=== PATIENT | male | born 1950 | race Caucasian/White ===

== ENCOUNTER 2016-10-22 18:50 | Inpatient (IN) | payer BC ==
--- NOTE | ~2016-10-22 | CN ---
Consultation Report [facility] [address] [place]. [address] NAME: AKIRA RICHARD : 48 STATUS : ADM IN [facility]#: [id number] AGE: 66 ADM/REG DATE : 10/22/16 MR#: [id number] REPORT SERV DATE: 10/23/16 DICTATED BY: SREEKANTH DOUGLAS DATE: 10/23/16 REPORT STATUS : Draft TRANSCRIBED BY: RENATA DATE: 10/23/16 NEPHROLOGY CONSULTATION DATE OF CONSULTATION: 10/23/2016 INDICATION FOR CONSULTATION: Zfuys-fk-xihxjjz kidney disease. HISTORY OF PRESENT ILLNESS: Mr. Richard is a 66-year-old male, who is seen for acute-on- chronic kidney disease following admission with cardiogenic shock and ventricular tachycardia. He presented to the emergency room with systolic blood pressures in the 50s to 70s and required cardioversion. His initial EKG was consistent with ST elevation in inferior leads and ventricular tachycardia. His troponin has been rising. He currently is on vasopressin and Levophed for blood pressure support and will need cardiac cath today. Home medications included Lasix ,lisinopril, Aldactone. His history was significant for poor p.o. intake with nausea and vomiting prior to hospitalization. The patient's creatinine was 5.42 on admission, 10/22/2016 and is down to 4.64 on 10/23/2016. His baseline creatinine was 1.17 in 08/2012. PAST MEDICAL HISTORY: Ischemic cardiomyopathy ejection fraction of 30%, coronary artery disease, status post PCI, history of atrial fib, type 2 diabetes mellitus, hypertension, chronic kidney disease probable stage II, gout, prostate cancer, status post radiation therapy, hyperlipidemia, remote WA, probable COPD, AICD. SOCIAL HISTORY: Fifty plus pack year smoker, currently smokes, twelve to fourteen cigarettes per day. No alcohol or IV drug use. He is disabled. FAMILY HISTORY: Positive for suicide. No myocardial infarction. No end-stage renal disease. PAST SURGICAL HISTORY: Right rotator cuff surgery, AICD, PCI. ALLERGIES: NONE. HOME MEDICATIONS: Allopurinol, furosemide, gabapentin, amiodarone, Lipitor, lisinopril, Plavix, Lasix, sublingual nitroglycerin, 70/30 insulin, spironolactone. REVIEW OF SYSTEMS: HEENT: No change in visual acuity. No epistaxis. No pharyngitis. PULMONARY: Notes some shortness of breath. No hemoptysis. CARDIAC: Denied chest pain. No lower extremity edema. GI: Recent nausea, vomiting, decreased p.o. intake. : No gross hematuria, dysuria, pyuria. MUSCULOSKELETAL: Generalized weakness. Occasional back pain. DERMIS: No rash. No skin lesions. Consultation Report [place] [address] [place]. [address] NAME: AKIRA RICHARD : 48 STATUS : ADM IN [facility]#: [id number] AGE: 66 ADM/REG DATE : 10/22/16 MR#: [id number] REPORT SERV DATE: 10/23/16 DICTATED BY: SREEKANTH DOUGLAS DATE: 10/23/16 REPORT STATUS : Draft TRANSCRIBED BY: RENATA DATE: 10/23/16 NEUROLOGIC: No lateralizing weakness or seizure activity. Remainder of 12-point review of systems is negative. PHYSICAL EXAMINATION: GENERAL: Pleasant male, alert, responsive. VITAL SIGNS: Blood pressure 95/64, temperature 98.7, respiratory rate 22, pulse 61. HEENT: Eyes, no scleral icterus. Pupils equal, reactive to light. Extraocular movement intact. Nares patent. No discharge. Throat, no injection. Mucous membranes moist. NECK: No thyromegaly, masses, bruits. CHEST/LUNGS: Late crackles laterally, unable to appreciate wheezes. No dullness. CARDIAC: Regular rate and rhythm, 1/6 systolic ejection murmur. No gallop. No rub. ABDOMEN: Supple. Normoactive bowel sounds. No hepatosplenomegaly. No masses. : Rosas in place. RECTAL: Not evaluated. EXTREMITIES: No lower extremity edema. No calf tenderness. DERMIS: No skin rash. No skin lesions. NEUROLOGIC: Cranial nerves intact. No lateralizing weakness. MUSCULOSKELETAL: No deformity. No joint tenderness. IMPRESSION: 1. Acute kidney injury consistent with acute tubular necrosis from shock due to ischemia, possibly complicated by prerenal state, ALCON inhibitor effect, superimposed on chronic kidney disease too. 2. Ventricular tachycardia with cardiogenic shock. 3. Possible kns-HH-jrssrnaba myocardial infarction versus ST-elevation myocardial infarction. 4. AICD, status post reprogramming. 5. Possible urinary tract infection. 6. Ischemic cardiomyopathy, ejection fraction of 30%. 7. History of atrial fibrillation. 8. Type 2 diabetes mellitus. 9. History of hypertension. 10.Gout. 11.Prostate cancer, status post radiation therapy. 12.Hyperlipidemia. 13.Remote myocardial infarction. 14.Coronary artery disease, status post PCI. 15.Probable chronic obstructive pulmonary disease. PLAN: 1. Okay for catheterization. 2. 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 3. Labs. Consultation Report [address] [place]. [address] NAME: AKIRA RICHARD : 48 STATUS : ADM IN PAT#: [id number] AGE: 66 ADM/REG DATE : 10/22/16 MR#: [id number] REPORT SERV DATE: 10/23/16 DICTATED BY: SREEKANTH DOUGLAS DATE: 10/23/16 REPORT STATUS : Draft TRANSCRIBED BY: RENATA DATE: 10/23/16 JUNIOR/RENATA Sreekanth Douglas M.D. / [id number] CC: Leonides Noble M.D.
--- NOTE | ~2016-10-22 | CN ---
Consultation Report [facility] [address] [place]. [address] NAME: AKIRA RICHARD : 48 STATUS : ADM IN PAT#: [id number] AGE: 66 ADM/REG DATE : 10/22/16 MR#: [id number] REPORT SERV DATE: 10/23/16 DICTATED BY: CHAYO GRAY DATE: 10/23/16 REPORT STATUS : Draft TRANSCRIBED BY: MODL DATE: 10/23/16 EP CONSULTATION DATE OF CONSULTATION: INDICATION: Sustained ventricular tachycardia. HISTORY: The patient is a 66-year-old white male with underlying ischemic cardiomyopathy who had been feeling poorly for a number of days. He presented to the emergency room with a systolic pressure of 60 and a wide-complex tachycardia. He was cardioverted. He has a known ejection fraction of 30%. Previous anterior SD in 1996. He had a PCI to the LAD, 06/2015. He had a defibrillator also placed in 2015. He was started on amiodarone and has had no further arrhythmias. A central line is being placed as we speak. In the emergency room, his device was reprogrammed to a detection rate of 162. He also was found to have acute renal failure. CURRENT HOME MEDICATIONS: Allopurinol 100 per day, amiodarone 200 q.a.m., artificial tears q.a.m., aspirin 81 mg, atorvastatin 80 at bedtime, carvedilol 6.25 b.i.d., clopidogrel 75 a day, furosemide 40 a day, gabapentin 300 per day, insulin as directed, lisinopril 10 q.a.m., and Aldactone 25 q.a.m. ALLERGIES: INTOLERANCES, NONE KNOWN. SOCIAL HISTORY: Smoker, currently smokes half pack per day. and retired. FAMILY HISTORY: No history of sudden . PAST MEDICAL HISTORY/REVIEW OF SYSTEMS: Positive for hypertension, hyperlipidemia, underlying chronic kidney disease, remote history of prostate cancer, and previous myocardial infarctions with an ischemic cardiomyopathy. EF between 25% and 30%. PHYSICAL EXAMINATION: GENERAL: A 66-year-old, white male, appears chronically ill. VITAL SIGNS: Blood pressure 95/64, pulse 61. SKIN: No xanthelasmas. HEENT: He is normocephalic. There is no pallor. Sclerae white. JVD is not elevated. CHEST: No crackles. CARDIAC: S1 normal, S2 is singular. There is a soft S3. ABDOMEN: Without tenderness. EXTREMITIES: Without edema. Consultation Report [place] [address] [place]. [address] NAME: AKIRA RICHARD : 48 STATUS : ADM IN PAT#: [id number] AGE: 66 ADM/REG DATE : 10/22/16 MR#: [id number] REPORT SERV DATE: 10/23/16 DICTATED BY: CHAYO GRAY DATE: 10/23/16 REPORT STATUS : Draft TRANSCRIBED BY: RENATA DATE: 10/23/16 LABORATORY DATA: On 10/24/2015: BUN is 53, creatinine 4.64, potassium of 4.9, admitting potassium 5.1, magnesium 1.6. Troponin, initially 2.23. TSH 4.91. White count 12.8, hemoglobin 10.5. ECG shows a wide-complex rhythm on admission, which resolves to a paced atrial rhythm. Rate of 60 with no acute repolarization changes present. IMPRESSION: Ventricular tachycardia, which may have resulted in his current shock state. He is on appropriate therapy. We will continue to follow with him. I agree with the current therapy. Ultimately however, given the fact that he has been on amiodarone, he may require EP mapping and ablation for better control of his ventricular tachycardia. Further recommendations as his course evolves. NAGA/RENATA Chayo Gray M.D. / [id number] CC: Leonides Noble M.D. , [facility]
--- NOTE | ~2016-10-22 | CN ---
Consultation Report [facility] [address] [place]. [address] NAME: AKIRA RICHARD : 48 STATUS : ADM IN PAT#: [id number] AGE: 66 ADM/REG DATE : 10/22/16 MR#: [id number] REPORT SERV DATE: 10/24/16 DICTATED BY: SHAYNA PETERSON DATE: 10/24/16 REPORT STATUS : Draft TRANSCRIBED BY: MODFrancisco DATE: 10/24/16 INFECTIOUS DISEASE CONSULT DATE OF CONSULTATION: REASON FOR REFERRAL: Evaluation and treatment of gram-negative sergei sepsis. HISTORY OF PRESENT ILLNESS: The patient is a 66-year-old male. He has a history of coronary artery disease, ischemic cardiomyopathy. He has had ventricular tachycardia problems in the past and has an AICD. Also, he has hyperlipidemia, chronic renal insufficiency, prostate cancer, and tobacco dependency. He states he had felt unwell earlier in the week and then early in the morning of the , awoke with severe nausea and vomiting that continued through the day. He had fever-like sensation x1, but that was not a prominent symptom. He states he did not have any abdominal pain or cramping. He had no diarrhea and he had no dysuria. He says he has not had changes in his urine recently and appearance or smell and has not been treated in the past for urinary tract infection. He was found to have sustained ventricular tachycardia and an emergent cardioversion was done. He had persistent hypotension. So, Dr. Kearney of Critical Care Medicine ordered blood cultures on him. He was found yesterday to have a positive blood culture, one of two for gram-negative sergei. This was discussed with me last evening by phone. He had been started on Zosyn empirically, and I added a single dose of gentamicin to that. The patient's urine was abnormal showing large leukocyte esterase, large blood, positive nitrite at presentation, and 80 white blood cells. It is growing greater than 100,000 colonies of gram-negative sergei that does not look like an E coli yet that is still not definitively identified. He, this morning, was awake. He says he feels very weak, but somewhat better. His temperature has been normal since arrival. His white blood cell count was elevated at 11 and is higher today at 17. His creatinine is improving; it was 5.42 when he came in and it is down to 3.55 this morning. He did not eat any unusual foods that he thinks he may have gotten sick from and nobody around him has been ill. He did go fishing earlier in the week, but otherwise, no unusual environmental exposures. PAST MEDICAL HISTORY: Otherwise unremarkable. MEDICATIONS: As described above. ALLERGIES: HE HAS NO KNOWN ANTIMICROBIAL ALLERGIES. SOCIAL HISTORY: He is retired; ; disabled. Still smokes 12 to 14 cigarettes per day and has no history of alcohol or substance abuse. FAMILY HISTORY: Noncontributory. PHYSICAL EXAMINATION: GENERAL: A chronically ill-appearing, but nontoxic, elderly male, in no acute Consultation Report [place] [id number] [facility] [place]. [address] NAME: AKIRA RICHARD : 48 STATUS : ADM IN [facility]#: [id number] AGE: 66 ADM/REG DATE : 10/22/16 MR#: [id number] REPORT SERV DATE: 10/24/16 DICTATED BY: SHAYNA PETERSON DATE: 10/24/16 REPORT STATUS : Draft TRANSCRIBED BY: RENATA DATE: 10/24/16 distress. He is alert and oriented x3. VITAL SIGNS: Temperature as stated has remained normal, it is 98.4 at present with a pulse of 60, respirations 26, blood pressure 96/56. Weight is 85 kg. HEENT: Sclerae are clear. No oral lesions. NECK: Supple without lymphadenopathy. LUNGS: Crackles in the bases. Otherwise, clear. HEART: Regular rate and rhythm. ABDOMEN: Soft, tender in the groin areas. Venipunctures were done, but otherwise nontender. No masses palpated. No hepatosplenomegaly. EXTREMITIES: Without clubbing, cyanosis, or edema. No wounds, sores, or signs of cellulitis. LABORATORY DATA: White blood cell count is up to 17.1 today, but without a bandemia, hematocrit 27.6, and platelets 146. BUN and creatinine 59 and 3.55. His procalcitonin surprisingly was 0.15. IMPRESSION: Gram-negative sergei sepsis, probably genitourinary tract etiology. He does have signs of infection there and it is unclear whether it is right now the same organism that is in his blood. Gastrointestinal etiology is still a possibility with the nausea, vomiting, but without abdominal pain, cramping, or diarrhea, I think that is less likely. RECOMMENDATIONS: 1. We will continue Zosyn empirically pending identification of gram-negative sergei. 2. We will not give any more than a single dose of gentamicin I gave him last night with his chronic renal insufficiency. 3. Follow up the cultures tomorrow. Change antibiotics as indicated. Finally, I will follow the patient with you. I appreciate very much your consulting on this patient. MARTI/RENATA Shayna Peterson M.D. / [id number] CC: Leonides Noble M.D.
--- NOTE | ~2016-10-22 | HP ---
History And Physical [place] [id number] [facility] [place]. [address] NAME: AKIRA RICHARD : 48 STATUS : ADM IN PAT#: [id number] AGE: 66 ADM/REG DATE : 10/22/16 MR#: [id number] REPORT SERV DATE: 10/23/16 DICTATED BY: ANJALI BLUE DATE: 10/22/16 REPORT STATUS : Draft TRANSCRIBED BY: RENATA DATE: 10/22/16 DATE OF ADMISSION: 10/22/2016 REFERRING REASON: VT storm, cardiogenic shock, and acute renal failure. HISTORY OF PRESENT ILLNESS: This is a pleasant 66 years old white gentleman with complex past medical history, well known to Dr. Encarnacion, who was being brought by the ambulance for nausea, vomiting, general weakness, and tachycardia. He was found to be in wide-complex tachycardia up to 167 beats per minute on monitor. He was hypotensive with a systolic blood pressure 60 and required emergent cardioversion by Dr. Weiner in the emergency room. His initial electrocardiogram suggested some ST elevation in the inferior leads, and Dr. Aden, interventionalist on-call, was apparently called and reviewed the electrocardiogram. The patient was found to be hypotensive, but is feeling better after he underwent emergent cardioversion. The patient has known ischemic cardiomyopathy with EF 30% with several myocardial infarctions, one anterior in 1996 and then the pyb-JG-nbxxilrix PA treated with PCI to LAD by Dr. Kaiser Osullivan in 06/2015. He is status post AICD Medtronic device placement in 2016. He is a smoker with hypertension, hyperlipidemia, and chronic kidney disease. He has been in his usual state of health until four days ago when he started with some nausea and vomiting, poor p.o. intake. He was fishing over the last couple of days. He developed poorly defined episodes of substernal chest pressure on and off. He has also one day of fevers, but developed nausea and vomiting. He was unable to keep anything down. As of yesterday, he was feeling weak and developed some palpitations. He was found to be in wide- complex tachycardia. He denies any lower extremity edema, syncope. Based on the Medtronic device interrogation, he got four episodes of ventricular tachycardia yesterday, which was treated with antitachycardia pacing and his detection has been decreased in the emergency room today from 185 to 162. He is comfortably resting now, oriented x3. He was found to be in acute on chronic renal failure with a creatinine of 5.4 and BUN 51. His initial troponin is 2.2. REVIEW OF SYSTEMS: The rest of review of system is negative. PAST MEDICAL HISTORY: 1. Ischemic cardiomyopathy with EF 25%. 2. Coronary artery disease, status post anterior myocardial infarction in 1996 with non- STEMI in 2016. 3. Status post PCI to LAD by Dr. Osullivan in 2016. 4. Hypertension, hyperlipidemia, smoking dependency, and he has chronic kidney disease. 5. Remote history of prostate cancer. 6. AICD in place. 7. History of a ventricular tachycardia in the past. ALLERGIES: NO KNOWN DRUG ALLERGIES. History And Physical [address] [address] NAME: AKIRA RICHARD : 48 STATUS : ADM IN [facility]#: [id number] AGE: 66 ADM/REG DATE : 10/22/16 MR#: [id number] REPORT SERV DATE: 10/23/16 DICTATED BY: ANJALI BLUE DATE: 10/22/16 REPORT STATUS : Draft TRANSCRIBED BY: RENATA DATE: 10/22/16 SOCIAL HISTORY: The patient has been smoking entire life, currently half a pack a day. He walks without any support. He is . He is retired. FAMILY HISTORY: Negative for sudden cardiac or premature coronary artery disease in the family. HOME MEDICATIONS: Amiodarone 200 mg twice a day, atorvastatin 80 mg once a day, Coreg 6.25 mg twice a day, Plavix 75 mg once a day, Lasix 40 mg once a day, lisinopril 10 mg once a day, aspirin, and spironolactone 12.5 mg once a day. He has not been taking any of these medication over the last day or so while he has nausea and vomiting. PHYSICAL EXAMINATION: GENERAL: Chronic ill-looking gentleman. VITAL SIGNS: Blood pressure 160/40 and heart rate 110, regular. HEENT - Pupils reactive to light and accommodation. Moist mucosa membrane. NECK: No JVD. Normal carotid upstroke. No carotid bruits. LUNGS: Decreased breath sounds observed, but no crackles. COR: Normal S1, S2. No S3 or S4. No significant rub or murmurs. There is AICD in place in the left prepectoral muscle area. ABDOMEN: Distended and nontender. EXTREMITIES: Lower extremities, decreased pedal pulses bilaterally, but no edema. SKIN: Warm with normal turgor. MS - No kyphosis. NEURO/PSY - Alert and oriented x3. Nonfocal. LABORATORY DATA: Hemoglobin 10.3, leukocytosis 11,000 with left shift. INR 1.3. Sodium 138, potassium 5.1, creatinine 5.4, BUN 51, troponin 2.2, magnesium 1.5. Initial electrocardiogram revealed wide-complex tachycardia, 160 beats per minute, consistent with ventricular tachycardia. After the cardioversion, he has atrial-paced rhythm 61 beats per minute with old anteroseptal PA when compared to previous electrocardiogram. ASSESSMENT AND PLAN: 1. Ventricular tachycardia with evidence of ventricular tachycardia storm. 2. Hypotension, likely cardiogenic shock. 3. Elevated troponin, possible acute coronary syndrome. 4. Acute renal failure in the setting of chronic renal insufficiency. The patient will be admitted to ICU and close monitoring. He received a central line in the emergency room. He will require pressors, which will be difficult in the setting of his ventricular tachycardia. We will ask lei seller to help us to manage this critically ill gentleman. We will start him on Manuelito-Synephrine initially in the attempt to avoid more ventricular tachycardia. He will be on intravenous amiodarone and intravenous heparin, and receive aspirin. We will hold all the other medications. Likely, he will need to proceed with coronary arteriogram in the near future. We will also ask farm equipment mechanic to see him tonight for his renal failure. Code status has been discussed with the patient and his family members. He is full code. History And Physical [address] [address] NAME: AKIRA RICHARD : 48 STATUS : ADM IN [facility]#: [id number] AGE: 66 ADM/REG DATE : 10/22/16 MR#: [id number] REPORT SERV DATE: 10/23/16 DICTATED BY: ANJALI BLUE DATE: 10/22/16 REPORT STATUS : Draft TRANSCRIBED BY: RENATA DATE: 10/22/16 DG/RENATA Anjali Blue M.D. / [id number] CC: Anjali Blue M.D.
--- NOTE | ~2016-10-22 | EHP ---
ER History and Physical [address] [address] NAME: AKIRA RICHARD : 48 STATUS : ADM IN PAT#: [id number] AGE: 66 ADM/REG DATE : 10/22/16 MR#: [id number] REPORT SERV DATE: 10/23/16 DICTATED BY: HAIR CROSS DATE: 10/22/16 REPORT STATUS : Draft TRANSCRIBED BY: MODFrancisco DATE: 10/22/16 CHIEF COMPLAINT: Weakness, nausea, and chest pain. HISTORY OF PRESENT ILLNESS: A 66-year-old white male who for three days now since Friday has been having intermittent nausea, intermittent chest pain as well as profound weakness to the point where he has been unable to stand, get up and get around. He has had no p.o. intake per him since Friday when the symptoms started. EMS was summoned by the patient because of this, who responded to find the patient at what appeared to be a wide-complex tachycardia, was lethargic, en route was given 150 mg of Cordarone with a change in his heart rate down to about 160 that remained wide-complex. Upon arrival here, patient was lethargic and nearly obtunded. Initial blood pressure was in the 50s. IV fluids were started immediately. His initial EKG here showed some ST elevation in his inferior leads as well as what appeared to be ventricular tachycardia in his lateral leads. Due to the ST elevation and the significant EKG abnormalities, a STEMI was called. The on- call STEMI doctor was Dr. Aden. I and him discussed the case on the presentation. Here, the patient is hypotensive, tachycardic, and was extremely pale looking and he was denying chest pain on arrival here. We held off on rushing the patient to the lab[facility] until we could better evaluate the patient's situation and get a better bearing on what the patient's clinical situation is. After I discussed this case with Dr. Aden, the patient's blood pressure ysabel to the 70s, however, precipitously change down into the 50s. Again, the patient became obtunded again and was barely arousable so using 200 joules of biphasic defibrillator, the patient was synchronized cardioverted into normal sinus rhythm. Repeat EKG post cardioversion showed normal sinus rhythm with a rate about 60. The patient improved dramatically. Mental status improved. The patient stated that he felt better than he had in the last several days. His blood pressures, however, continued to be a problem. The patient's blood pressure after synchronized cardioversion back in normal sinus rhythm ysabel to the 70s, however, despite fluid boluses, this did not improve. My suspicion is that the patient has a component of cardiogenic shock secondary to his ventricular tachycardia although severe volume depletion is a possibility given the fact that he has been lethargic and no p.o. intake for several days. Dr. Aden actually came to see the patient just after his cardioversion and reviewed the EKGs. The post-cardioversion EKG did not indicate an ST elevation NV. The patient is absent of chest pain here so STEMI protocol was abandoned. After the patient's stabilization, blood work was drawn. Labs revealed the patient is in acute renal failure as well as has a moderately elevated troponin of 2.2. The patient remained stable here, normal sinus rhythm. Multiple IV fluid boluses were given. However, the patient's blood pressure did not respond. He does have an EF of 25% so Manuelito-Synephrine was started, this was a choice made by Cardiology for pressor therapy. A right central line was placed by myself and the chest x-ray reveals tips in the SVC with no pneumothorax. See the paper chart for details of this procedure. Overall the patient's clinical situation stabilized after pressor therapy as well as DC cardioversion. He was placed on amiodarone drip directly post cardioversion as well. He is on amiodarone, and of note, he recently had reduction in his amiodarone dose from 200 b.i.d. to 200 daily. The [employer] packaging sales representative came to interrogate the patient's pacemaker and AICD. The patient's previous setting was a ventricular rate of 182 to initiate defibrillation. This was lowered to 162 by Cardiology. Please document greater than 75 minutes critical care time went in direct stabilization of the patient as well as discussing the patient's situation with the consultants and admitting ER History and Physical [address] [place]. [address] NAME: AKIRA RICHARD : 48 STATUS : ADM IN [facility]#: [id number] AGE: 66 ADM/REG DATE : 10/22/16 MR#: [id number] REPORT SERV DATE: 10/23/16 DICTATED BY: HAIR CROSS DATE: 10/22/16 REPORT STATUS : Draft TRANSCRIBED BY: MODL DATE: 10/22/16 physician. The patient will be placed in the ICU. This critical care time is outside of any billable procedures done. LEONORA/RENATA Hair Cross DO / [id number] CC: Leonides Noble M.D.
--- NOTE | ~2016-10-22 | CN ---
Consultation Report [facility] [address] [place]. [address] NAME: AKIRA RICHARD : 48 STATUS : ADM IN PAT#: [id number] AGE: 66 ADM/REG DATE : 10/22/16 MR#: [id number] REPORT SERV DATE: 10/22/16 DICTATED BY: CHAYO KEARNEY DATE: 10/22/16 REPORT STATUS : Draft TRANSCRIBED BY: MODL DATE: 10/22/16 CONSULTATION REPORT DATE OF CONSULTATION: 10/22/2016 REASON FOR CONSULTATION: Shock. HISTORY OF PRESENT ILLNESS: The patient is a 66-year-old gentleman with a past medical history of: 1. Insulin-dependent diabetes. 2. Coronary disease, status post multiple PCI by Dr. Osullivan. 3. Obesity. 4. Hyperlipidemia. 5. Hypertension. 6. Tobacco abuse. 7. Chronic kidney disease. 8. History of prostate cancer, status post radiation therapy. 9. Gout. 10.History of sustained ventricular tachycardia, status post AICD placement. 11.History of rotator cuff repair. The patient is a 66-year-old gentleman with a past medical history of insulin-dependent diabetes; coronary artery disease; and sustained ventricular tachycardia, status post AICD placement who presents with nausea, vomiting, and weakness. The patient says that he was in his usual state of health until the night before admission to the hospital. He had been fishing the last several days and had been feeling well. Then, on the night before admission, he began having some nausea, vomiting, and was unable to keep anything down. He states that he has been having weakness since the onset of the nausea and vomiting as well. All of this worsened today and this prompted him to come to the emergency room. He denies any fevers, but does note that he has been having some diaphoresis over the same time. He denies any abdominal pain, any dysuria, or any diarrhea. He denies any sick contacts, recent travel. He does endorse a cough over the last few days, but that has been nonproductive. He denies any fevers. He does endorse some right shoulder pain, that this has been stabbing in quality and radiating to his back. He denies any shortness of breath. On arrival here to the emergency room, he was found to be in sustained ventricular tachycardia with a systolic blood pressure in the 50s. He underwent defibrillation in the emergency room with improvement in his blood pressure somewhat when he is back in sinus rhythm, but still currently requiring both vasopressin as well as Manuelito-Synephrine drip to maintain a normal blood pressure. Per Cardiology interrogation of his pacer, it shows that he has been in and out sustained ventricular tachycardia for the past three days, but the ventricular rate has been below his threshold, so the AICD has not defibrillated him. We are consulted to assist in management of his shock. ALLERGIES: NO KNOWN DRUG ALLERGIES. Consultation Report [facility] [address] [place]. [address] NAME: AKIRA RICHARD : 48 STATUS : ADM IN PAT#: [id number] AGE: 66 ADM/REG DATE : 10/22/16 MR#: [id number] REPORT SERV DATE: 10/22/16 DICTATED BY: CHAYO KEARNEY DATE: 10/22/16 REPORT STATUS : Draft TRANSCRIBED BY: RENATA DATE: 10/22/16 HOME MEDICATIONS: Include: 1. Insulin 70/30, 18 units subcutaneously every morning and 12 units subcutaneously at night. 2. Sublingual nitroglycerin as needed. 3. Neurontin 300 mg p.o. three times daily. 4. Aspirin 81 mg p.o. daily. 5. Coreg 6.25 mg p.o. twice daily. 6. Amiodarone 200 mg daily. 7. Allopurinol 100 mg p.o. daily. 8. Lipitor 80 mg p.o. at bedtime. 9. Lisinopril 10 mg p.o. daily. 10.Plavix 75 mg p.o. daily. 11.Lasix 40 mg p.o. daily. 12.Spironolactone 12.5 mg p.o. daily. SOCIAL HISTORY: A 50+ pack-year history of smoking, currently smokes around 12 to 14 cigarettes a day. No alcohol or IV drug abuse. FAMILY HISTORY: No significant family history of coronary artery disease. REVIEW OF SYSTEMS: A 10-point review of systems is negative except as mentioned in the HPI. PHYSICAL EXAMINATION: VITAL SIGNS: Temperature 97.8, heart rate 60, respiratory rate 23, and blood pressure 95/60. GENERAL: In no acute distress. HEENT: Pupils are equal, round, and reactive to light. Extraocular movements are intact. Oropharynx is clear. Moist mucous membranes. NECK: Supple and nontender. No lymphadenopathy. No thyromegaly. No jugular venous distention. LUNGS: Decreased breath sounds bilaterally with some mild end-expiratory wheezes. CARDIOVASCULAR: Regular rate and rhythm. No murmurs, rubs, or gallops. ABDOMEN: Soft, nontender, and nondistended. Positive bowel sounds. No hepatosplenomegaly. EXTREMITIES: No cyanosis, clubbing, or edema. NEURO: Alert and oriented x3. Cranial nerves intact. PSYCH: Mood appropriate. LABS AND IMAGING: Lactic acid 3.9. Metabolic profile remarkable for BUN of 51 and creatinine of 5.4. Troponin 2.2. TSH 4.9. CBC remarkable for white count of 11 with 73% neutrophils. ABG with a pH of 7.36, pCO2 of 28, and PO2 of 102. ASSESSMENT AND PLAN: The patient is a 66-year-old gentleman with a past medical history of insulin-dependent diabetes; coronary artery disease; and sustained ventricular tachycardia, Consultation Report [address] [place]. [address] NAME: AKIRA RICHARD : 48 STATUS : ADM IN [facility]#: [id number] AGE: 66 ADM/REG DATE : 10/22/16 MR#: [id number] REPORT SERV DATE: 10/22/16 DICTATED BY: CHAYO KEARNEY DATE: 10/22/16 REPORT STATUS : Draft TRANSCRIBED BY: RENATA DATE: 10/22/16 status post automatic implantable cardioverter defibrillator placement who now presents again with the same ventricular tachycardia and shock, status post defibrillation in the emergency room with return to normal sinus rhythm, but now with persistent shock for which we are consulted. I suspect most likely his etiology of his shock is cardiac in origin with no contribution from sepsis. He denies really any infectious complaints. I do not see any evidence of infection on his lab data. I am going to check some cultures as well as a procalcitonin, but going to hold off on starting any empiric antibiotics for now. I did a bedside lung and cardiac ultrasound, which shows bilateral B lines with no evidence of consolidation. No pleural effusions. His IVC is 1.7 cm with minimal variation using mitral valve excursion. His ejection fraction appears to be less than 40%. These findings support cardiogenic shock rather than septic shock and no evidence of volume depletion. His lung ultrasound also suggests that he is developing a component of pulmonary edema, but his oxygenation is currently adequate, so would not favor attempting diuresis at this time especially given his shock. Currently, he is on Manuelito-Synephrine and vasopressin. We will attempt to start a Levophed drip to maintain a MAP greater than 65, but we will watch his heart rate and rhythm closely. Once he is on Levophed, we will attempt to wean off his Manuelito- Synephrine as tolerated. The rest of his care will be per the primary cardiac team. We appreciate the consult. We will continue follow along the patient with you. Please call if you have any questions. The patient has a high probability of sudden clinically significant or life-threatening deterioration in his condition. Total critical care time spent on this patient including time at the bedside and reviewing the chart as well as discussion with Dr. Noble was 40 minutes. ANNIE/RENATA Chayo Kearney MD / [id number] CC: Leonides Noble M.D.
--- NOTE | ~2016-10-22 | DS ---
Discharge Summary [facility] [address] [place]. [address] NAME: AKIRA RICHARD : 48 STATUS : DIS IN PAT#: [id number] AGE: 66 ADM/REG DATE : 10/22/16 MR#: [id number] REPORT SERV DATE: 11/16/16 DICTATED BY: LEONIDES BLUE DATE: 11/15/16 REPORT STATUS : Draft TRANSCRIBED BY: RENATA DATE: 11/15/16 Data Collection from hospitalization DISCHARGE DIAGNOSES: 1. Escherichia coli sepsis. 2. Ventricular tachycardia storm. 3. Acute kidney injury on chronic kidney disease. 4. Ischemic cardiomyopathy. 5. Hypertension. 6. Non-ST elevation myocardial infarction. 7. Remote history of prostate cancer. 8. History of automatic implantable cardioverter defibrillator placement. 9. Hyperlipidemia. 10.Tobacco use. 11.Chronic kidney disease. CONSULTATIONS: 1. Diaz Kearney MD. 2. Marcell Rendon M.D. 3. Diaz Gray M.D. 4. Devon Anthony M.D. PROCEDURES PERFORMED: Cardiac catheterization on 10/23/2016. MEDICATIONS: Zyloprim 100 mg every morning, Pacerone as instructed, Refresh solution one drop every morning, aspirin 81 mg every morning, Lipitor 80 mg at bedtime, Plavix 75 mg every morning, Neurontin 300 mg three times a day, NovoLog 18 units subcutaneously every morning, NovoLog 12 units subcutaneously at bedtime, ProAmatine 5 mg twice a day, and Nitrostat 0.4 mg sublingually as needed. CONDITION AT DISCHARGE: Stable. DISPOSITION: The patient was discharged home on an 1800-calorie diabetic diet with activities as instructed. He would follow up with Dr. Christoph Urena on 11/12/[address] Hoang three to four weeks following discharge. He would follow up with his primary care provider one to two weeks following discharge. He would follow up at cardiac rehab on 11/27/2016. HOSPITAL COURSE: This is a 66-year-old man who has a complex past medical history. The patient was brought in by ambulance with nausea, vomiting, general weakness, and tachycardia. He was found to be in wide-complex tachycardia up to 167 beats per minute. He was hypotensive with systolic blood pressure of 60 and required emergent cardioversion by Dr. Weiner in the emergency room. His initial electrocardiogram suggested some ST elevation in the inferior leads. Dr. Cristiano Aden was apparently called and reviewed the electrocardiogram. The patient was found to be hypotensive, but was feeling better after he underwent emergent cardioversion. The patient has known ischemic cardiomyopathy with ejection fraction 30% with several myocardial infarctions. He is status post percutaneous coronary intervention in 2016 and AICD placement in 2016. He is a smoker with hypertension, Discharge Summary [address] [address] NAME: AKIRA RICHARD : 48 STATUS : DIS IN PAT#: [id number] AGE: 66 ADM/REG DATE : 10/22/16 MR#: [id number] REPORT SERV DATE: 11/16/16 DICTATED BY: LEONIDES BLUE DATE: 11/15/16 REPORT STATUS : Draft TRANSCRIBED BY: RENATA DATE: 11/15/16 hyperlipidemia, and chronic kidney disease. He had been in his usual state of health until about four days prior to this admission when he began to develop some nausea and vomiting. He had poor oral intake. He was fishing over the past couple of days. He developed poorly defined episodes of substernal chest pressure on and off. He also had one day of fever, but then developed nausea and vomiting. He was unable to keep anything down. On the day prior to this admission, he felt weak and developed some palpitation. He was found to be in wide- complex tachycardia. Based on the [employer] device interrogation, he had four episodes of ventricular tachycardia, which had been treated with antitachycardia pacing and his detection had been decreased in the emergency room from 185 to 162. He was found to be in acute on chronic renal failure with creatinine of 5.4. His initial troponin was 2.2. l intervention. He was admitted to the hospital at this time for further evaluation and treatment. Upon admission, the patient was placed in the ICU. Creatinine level was 5.4. A central line was placed in the emergency room. It was felt that he would require pressors. He was started on Manuelito-Synephrine initially in the attempt to avoid marked ventricular tachycardia. He was going to receive intravenous amiodarone and intravenous heparin and received some aspirin. We would hold all of his other medications. It was felt that he would likely need to proceed with coronary arteriogram in the near future. He was seen in consultation by Dr. Diaz Kearney regarding shock. He has had a cough for a few days, which was nonproductive. He said he had some right shoulder pain that was stabbing in quality and radiated to his back. White blood cell count was 11. It was suspected that the most likely etiology of his shock was cardiac in origin with no contribution from sepsis. He really denied any infectious complaints. He did not see any evidence of infection on the patient's lab data. Some cultures were going to be checked as well as procalcitonin, but we would hold off on starting empiric antibiotics for now. A bedside lung and cardiac ultrasound was performed, which showed bilateral B lines with no evidence of consolidation and no pleural effusion. IVC was 1.7 cm with minimal variation. His ejection fraction appeared to be less than 40%. These findings support cardiogenic shock rather than septic shock, and there was no evidence of volume depletion. His lung ultrasound also suggested that he was developing a component of pulmonary edema, but his oxygenation was adequate currently. We did not favor attempting diuresis at this time, especially given his shock. We would attempt to start a Levophed drip to maintain MAP greater than 65, but we would watch his heart rate and rhythm closely. Once he was on Levophed, we would attempt to wean off the Manuelito-Synephrine as tolerated. The patient has a high probability of sudden clinically significant or life-threatening deterioration in his condition. The following day, he was seen by Dr. Marcell Rendon regarding acute on chronic kidney disease. On admission, the patient's creatinine was 5.42. It had decreased now to 4.6. Baseline creatinine was 1.17 in 2012. He was felt to have acute kidney injury consistent with acute tubular necrosis from shock due to ischemia, possibly complicated by prerenal state, ALCON inhibitor effect, superimposed on chronic kidney disease. It was felt that the patient could undergo cardiac catheterization. Arrangements would be made for Vas-Cath for possible need of dialysis/[facility]. The patient was taken to the cardiac laborer syrup machine where he underwent the above-mentioned procedure by Dr. Christoph Mosquera. He tolerated this well, and there were no complications. The patient was seen by Dr. Diaz Gray regarding sustained ventricular tachycardia. He has been started on amiodarone and had no further arrhythmia. A central line was in place. He was on appropriate therapy and he agreed with the current therapy. Ultimately, given the fact that he had been on Discharge Summary [facility] [id number] [place]. [address] NAME: AKIRA RICHARD : 48 STATUS : DIS IN PAT#: [id number] AGE: 66 ADM/REG DATE : 10/22/16 MR#: [id number] REPORT SERV DATE: 11/16/16 DICTATED BY: LEONIDES BLUE DATE: 11/15/16 REPORT STATUS : Draft TRANSCRIBED BY: RENATA DATE: 11/15/16 amiodarone, it was felt that he may require electrophysiology mapping and ablation for better control of his ventricular tachycardia. A Vas-Cath was placed. He was seen in consultation the following day by Dr. Devon Anthony for evaluation and treatment of gram- negative sergei sepsis. He was found to have a positive blood culture 1 of 2 for gram-negative rods. He has been started on empiric Zosyn. A single dose of gentamicin had being given. His urine was abnormal showing large leukocyte esterase, large blood, positive nitrites, on presentation and 80 white blood cells. It was growing greater than 100,000 colonies of gram negative rods that did not look like E. coli yet and was still not definitively identified. He said he felt very weak, but somewhat better. His temperature had been normal since arrival. His white blood cell count had increased to 17. Creatinine had improved to 3.55. His impression included gram-negative sergei sepsis, probably genitourinary tract etiology. He does have signs of infection and it was unclear whether it was right now the same organism that was in his blood. Gastrointestinal etiology was still a possibility with nausea and vomiting, but without abdominal pain, cramping, or diarrhea, it was felt that this was less likely. Empiric Zosyn was going to be continued, pending identification of gram-negative rods. We would not give any more than a single dose of gentamicin with his chronic renal insufficiency. He did have runs of ventricular tachycardia. He had no chest pain or palpitations. We were going to continue IV - oral amiodarone. ICD rates were adjusted. On 10/25/2016, he was being weaned off Levophed. He had been changed to oral amiodarone. He still had an intermittent cough. Creatinine continued to decrease and was now 2.79. Bumex was decreased. Bumex was continued. He was changed to Ancef. The following day, ALCON inhibitor was on hold. Renal function was improving. Supportive care continued. Magnesium and potassium supplementation were given. White blood cell count had decreased. On 10/27/2016, he said he felt better. He was a little stronger. He was afebrile. Ancef was continued. Renal function was stable. He was changed to oral diuresis. ALCON inhibitor remained on hold. He was up sitting in a chair. On 10/28/2016, he was being reloaded with oral amiodarone. He had no further ventricular tachycardia. We would decrease the amiodarone towards the end of the week. He had no nausea or vomiting. The Rosas catheter was removed. He was going to be transferred to the floor. The Vas-Cath was going to remain in place a little longer. On 10/29/2016, he had been taken off Levophed. He had good urine output. He had no shortness of breath. He said that he was feeling well and had no chest pain. The Vas-Cath was removed. The next day, he was feeling stronger. He was wanting to go home. He had no edema. Cardiovascular status was stable. On 10/31/2016, he was still weak. He had been evaluated by Physical Therapy. The patient had wide-complex tachycardia. The morphology was different than on admission. The rate was also different. It was felt that he may have underlying atrial flutter and left bundle-branch block. [employer] was asked to check the ICD. Amiodarone was continued. It was felt that he may need to undergo cardioversion. If findings were consistent with atrial flutter, we would start anticoagulant and plan for either ablation or cardioversion. ICD check was performed. Amiodarone was continued. The ICD check was consistent with ventricular tachycardia. This was self-terminated and he was now in a sinus rhythm. Blood pressure was low. Amiodarone was continued. Discharge planning was performed. Furosemide was stopped. IV normal saline was given. Left ventricular ejection fraction is 20%-25%. He still felt weak. All antihypertensives and diuretics were held. He did have some hypotension. Echocardiogram was performed. He had a Discharge Summary [facility] [address] [place]. [address] NAME: AKIRA RICHARD : 48 STATUS : DIS IN PAT#: [id number] AGE: 66 ADM/REG DATE : 10/22/16 MR#: [id number] REPORT SERV DATE: 11/16/16 DICTATED BY: LEONIDES BLUE DATE: 11/15/16 REPORT STATUS : Draft TRANSCRIBED BY: MODL DATE: 11/15/16 4-minute run of ventricular tachycardia. The patient tolerated this okay. Amiodarone was going to be continued. Blood pressure was too low to add beta-nina. On 11/02/2016, he had no complaints of chest pain. Discharge instructions were given. Due to his improved and stable condition, he was discharged home with the above-stated instructions. Information collected by: Danika Poole I submit the above information as my discharge summary. TASH/RENATA Leonides Blue M.D. / [id number] CC: Fabián Caballero M.D. David Wendt, M.D. Mark Anderson, M.D. Claude Galphin, M.D.
[~2016-10-22 18:50] MED LIST: ASAB PO; COREG6 PO; HUMALOGMIX SC; HUMAMIXPEN SC; L40 PO; LIPITOR80 MG PO; NEUR300 PO; NITROSTAT0.4 MG SL; NOVOPENMIX SC; P20 PO; PLAVIX PO; PRIN10 PO; SPIRO25 PO; VASOTEC2 PO; Z100 PO
[2016-10-22] MEDS ORDERED: NEUR300 PO (18:51)
[2016-10-22] MEDS ORDERED: NITROSTAT0.4 MG SL (18:51)
[2016-10-22] MEDS ORDERED: COREG6 PO (18:53)
[2016-10-22] MEDS ORDERED: ASAB PO (18:53)
[2016-10-22] MEDS ORDERED: CORDARONE PO (18:54)
[2016-10-22] MEDS ORDERED: Z100 PO (18:54)
[2016-10-22] MEDS ORDERED: PRIN10 PO (18:55)
[2016-10-22] MEDS ORDERED: LIPITOR80 MG PO (18:55)
[2016-10-22] MEDS ORDERED: PLAVIX PO (18:55)
[2016-10-22] MEDS ORDERED: SPIRO25 PO (18:56)
[2016-10-22] MEDS ORDERED: L40 PO (18:56)
[2016-10-22] MEDS ORDERED: REFRESH OPH (18:57)
[2016-10-22 18:58] LABS: BASOPHILS 0.1 %; BASOPHILS ABSOLUTE 0.01 10/3/uL (0.0-0.16); EOSINOPHILS 0.2 %; EOSINOPHILS ABSOLUTE 0.02 10/3/uL (0.0-0.53); IMMATURE GRANULOCYTES 0.4 %; IMMATURE GRANULOCYTES ABSOLUTE 0.05 10/3/uL (0.0-0.11); LYMPHOCYTES 20.4 %; LYMPHOCYTES ABSOLUTE 2.28 10/3/uL (0.67-4.30); MEAN CORPUS HGB CONC 33.8 g/dL (32.0-36.0); MEAN CORPUSCULAR HEMOGLOB 32.4 pg (26.0-34.0); MEAN PLATELET VOLUME 9.7 fL (9.2-13.0); MONOCYTES 5.6 %; MONOCYTES ABSOLUTE 0.63 10/3/uL (0.21-1.20); NEUTROPHILS 73.3 %; NEUTROPHILS ABSOLUTE 8.17 10/3/uL (2.02-8.40); PLATELET COUNT 200 10/3/uL (150-400)
[2016-10-22 18:59] LABS: HEMATOCRIT 30.5 % (40.0-51.0); HEMOGLOBIN 10.3 g/dL (13.6-17.8); MANUAL DIFF NO %; MEAN CORPUSCULAR VOLUME 95.9 fL (80-100); RED CELL COUNT 3.18 10/6/uL (4.7-6.1); WHITE BLOOD CELLS 11.2 10/3/uL (4.5-10.5)
[2016-10-22 19:07] LABS: INTERNATIONAL NORMAL RATI 1.3 UNITS (-); PARTIAL THROMBO TIME 34.3 SEC (22.5-37.2); PROTIME (NOT ORD) 15.9 SEC (12.0-14.5)
[2016-10-22 19:20] LABS: CALCIUM, SERUM 8.5 MG/DL (8.5-10.4); CHLORIDE, SERUM 107 MMOL/L (96-112); POTASSIUM, SERUM 5.1 MMOL/L (3.5-5.3); SODIUM, SERUM 137 MMOL/L (135-148)
[2016-10-22 19:23] LABS: BUN (BLOOD UREA NITROGEN) 51 MG/DL (6-23); CHEST PAIN PROFILE TAT 0 Hrs 30 Mins; CO2 (CARBON DIOXIDE) 18 MMOL/L (24-34); CREATININE 5.42 MG/DL (0.70-1.30); GFR AFRICAN AMERICAN 12 ML/MIN (>=60); GFR NON AFRICAN AMERICAN 10 ML/MIN (>=60); GLUCOSE, SERUM 153 MG/DL (60-99); TROPONIN I 2.23 NG/ML (<0.05)
[2016-10-22 20:24] LABS: LACTATE 3.9 MMOL/L (0.3-2.4)
[2016-10-22 23:56] LABS: BASOPHILS 0.1 %; BASOPHILS ABSOLUTE 0.01 10/3/uL (0.0-0.16); EOSINOPHILS 0 %; HEMATOCRIT 30.3 % (40.0-51.0); HEMOGLOBIN 10.1 g/dL (13.6-17.8); IMMATURE GRANULOCYTES 0.4 %; IMMATURE GRANULOCYTES ABSOLUTE 0.05 10/3/uL (0.0-0.11); LYMPHOCYTES 12.2 %; LYMPHOCYTES ABSOLUTE 1.38 10/3/uL (0.67-4.30); MEAN CORPUS HGB CONC 33.3 g/dL (32.0-36.0); MEAN CORPUSCULAR HEMOGLOB 32.7 pg (26.0-34.0); MEAN CORPUSCULAR VOLUME 98.1 fL (80-100); MONOCYTES 6.7 %; MONOCYTES ABSOLUTE 0.76 10/3/uL (0.21-1.20); NEUTROPHILS 80.6 %; NEUTROPHILS ABSOLUTE 9.15 10/3/uL (2.02-8.40); PLATELET COUNT 189 10/3/uL (150-400); RED CELL COUNT 3.09 10/6/uL (4.7-6.1); WHITE BLOOD CELLS 11.4 10/3/uL (4.5-10.5)
[2016-10-22 23:58] LABS: MANUAL DIFF NO %
[2016-10-23 00:14] LABS: INTERNATIONAL NORMAL RATI 1.5 UNITS (-); PROTIME (NOT ORD) 17.6 SEC (12.0-14.5)
[2016-10-23 00:25] LABS: PARTIAL THROMBO TIME > 150.0 SEC (22.5-37.2)
[2016-10-23 00:30] LABS: BUN (BLOOD UREA NITROGEN) 49 MG/DL (6-23); CHLORIDE, SERUM 109 MMOL/L (96-112); CO2 (CARBON DIOXIDE) 19 MMOL/L (24-34); GFR AFRICAN AMERICAN 13 ML/MIN (>=60); GFR NON AFRICAN AMERICAN 11 ML/MIN (>=60); GLUCOSE, SERUM 168 MG/DL (60-99); POTASSIUM, SERUM 5.2 MMOL/L (3.5-5.3); SODIUM, SERUM 139 MMOL/L (135-148)
[2016-10-23 00:58] LABS: TROPONIN I 3.41 NG/ML (<0.05)
[2016-10-23 01:02] LABS: PROCALCITONIN 0.15 ng/mL (<0.5)
[2016-10-23 04:59] LABS: BASOPHILS 0.1 %; BASOPHILS ABSOLUTE 0.01 10/3/uL (0.0-0.16); EOSINOPHILS 0 %; HEMATOCRIT 30.7 % (40.0-51.0); HEMOGLOBIN 10.5 g/dL (13.6-17.8); IMMATURE GRANULOCYTES 0.5 %; IMMATURE GRANULOCYTES ABSOLUTE 0.07 10/3/uL (0.0-0.11); LYMPHOCYTES 12.2 %; LYMPHOCYTES ABSOLUTE 1.57 10/3/uL (0.67-4.30); MEAN CORPUS HGB CONC 34.2 g/dL (32.0-36.0); MEAN CORPUSCULAR VOLUME 96.5 fL (80-100); MEAN PLATELET VOLUME 9.8 fL (9.2-13.0); MONOCYTES 7.6 %; MONOCYTES ABSOLUTE 0.97 10/3/uL (0.21-1.20); NEUTROPHILS 79.6 %; PLATELET COUNT 188 10/3/uL (150-400); RBC DISTRIBUTION WIDTH 14.8 % (12.0-16.0); RED CELL COUNT 3.18 10/6/uL (4.7-6.1); WHITE BLOOD CELLS 12.8 10/3/uL (4.5-10.5)
[2016-10-23 05:05] LABS: MANUAL DIFF NO %
[2016-10-23 05:06] LABS: CALCIUM, SERUM 8.1 MG/DL (8.5-10.4); CHLORIDE, SERUM 108 MMOL/L (96-112); CO2 (CARBON DIOXIDE) 17 MMOL/L (24-34); CREATININE 4.64 MG/DL (0.70-1.30); GFR AFRICAN AMERICAN 14 ML/MIN (>=60); GFR NON AFRICAN AMERICAN 12 ML/MIN (>=60); GLUCOSE, SERUM 160 MG/DL (60-99); HDL CHOLESTEROL 27 MG/DL (> 39); POTASSIUM, SERUM 4.9 MMOL/L (3.5-5.3); SGPT(ALT) 25 U/L (5-65); SODIUM, SERUM 138 MMOL/L (135-148)
[2016-10-23 05:24] LABS: BUN (BLOOD UREA NITROGEN) 53 MG/DL (6-23); CHOL/HDL RATIO(NOT ORDER) 3.3 (0-5); CHOLESTEROL 90 MG/DL (< 200); NON-HDL CHOLESTEROL 63 MG/DL (< 160)
[2016-10-23 05:25] LABS: LDL CHOLESTEROL 23 MG/DL (< 130); TRIGLYCERIDE 204 MG/DL (< 150); TROPONIN I 3.95 NG/ML (<0.05)
[2016-10-23 08:10] LABS: ASCORBIC ACID (UR NOT ORDER) NEG (NEG); BILIRUBIN, URINE NEGATIVE (NEG); KETONE, URINE NEGATIVE (NEG); LEUKOCYTE ESTERASE(NOT OR LARGE (NEG); WBC (NOT ORDERED) (RFLEX) 80 (0-5)
[2016-10-23 14:45] LABS: ASCORBIC ACID (UR NOT ORDER) NEG (NEG); BILIRUBIN, URINE NEGATIVE (NEG); KETONE, URINE NEGATIVE (NEG); LEUKOCYTE ESTERASE(NOT OR LARGE (NEG); WBC (NOT ORDERED) (RFLEX) 70 (0-5)
[2016-10-23 17:06] LABS: BUN (BLOOD UREA NITROGEN) 54 MG/DL (6-23); CALCIUM, SERUM 7.8 MG/DL (8.5-10.4); CHLORIDE, SERUM 104 MMOL/L (96-112); CO2 (CARBON DIOXIDE) 19 MMOL/L (24-34); GFR AFRICAN AMERICAN 17 ML/MIN (>=60); GFR NON AFRICAN AMERICAN 15 ML/MIN (>=60); GLUCOSE, SERUM 175 MG/DL (60-99); POTASSIUM, SERUM 4.8 MMOL/L (3.5-5.3); SODIUM, SERUM 134 MMOL/L (135-148)
[2016-10-23 17:07] LABS: CREATININE 3.96 MG/DL (0.70-1.30)
[2016-10-23 17:08] LABS: MICROALBUMIN, RANDOM URINE 21.2 MG/DL
[2016-10-23 23:59] LABS: CALCIUM, SERUM 7.9 MG/DL (8.5-10.4); CHLORIDE, SERUM 103 MMOL/L (96-112); CO2 (CARBON DIOXIDE) 21 MMOL/L (24-34); CREATININE 3.71 MG/DL (0.70-1.30); GFR AFRICAN AMERICAN 18 ML/MIN (>=60); GFR NON AFRICAN AMERICAN 16 ML/MIN (>=60); GLUCOSE, SERUM 186 MG/DL (60-99); POTASSIUM, SERUM 4.7 MMOL/L (3.5-5.3); SODIUM, SERUM 134 MMOL/L (135-148)
[2016-10-24 00:03] LABS: BUN (BLOOD UREA NITROGEN) 58 MG/DL (6-23)
[2016-10-24 03:17] LABS: BASOPHILS 0.1 %; BASOPHILS ABSOLUTE 0.02 10/3/uL (0.0-0.16); EOSINOPHILS 0.1 %; EOSINOPHILS ABSOLUTE 0.01 10/3/uL (0.0-0.53); HEMATOCRIT 27.9 % (40.0-51.0); HEMOGLOBIN 9.6 g/dL (13.6-17.8); IMMATURE GRANULOCYTES 0.4 %; IMMATURE GRANULOCYTES ABSOLUTE 0.07 10/3/uL (0.0-0.11); LYMPHOCYTES 5.9 %; LYMPHOCYTES ABSOLUTE 1.01 10/3/uL (0.67-4.30); MANUAL DIFF NO %; MEAN CORPUS HGB CONC 34.4 g/dL (32.0-36.0); MEAN CORPUSCULAR HEMOGLOB 32.5 pg (26.0-34.0); MEAN CORPUSCULAR VOLUME 94.6 fL (80-100); MEAN PLATELET VOLUME 9.9 fL (9.2-13.0); MONOCYTES 5.1 %; MONOCYTES ABSOLUTE 0.87 10/3/uL (0.21-1.20); NEUTROPHILS 88.4 %; NEUTROPHILS ABSOLUTE 15.12 10/3/uL (2.02-8.40); PLATELET COUNT 146 10/3/uL (150-400); RBC DISTRIBUTION WIDTH 14.9 % (12.0-16.0); RED CELL COUNT 2.95 10/6/uL (4.7-6.1); WHITE BLOOD CELLS 17.1 10/3/uL (4.5-10.5)
[2016-10-24 03:25] LABS: INTERNATIONAL NORMAL RATI 1.3 UNITS (-); PROTIME (NOT ORD) 16.2 SEC (12.0-14.5)
[2016-10-24 03:27] LABS: ALBUMIN 2.6 G/DL (3.5-5.0); BUN (BLOOD UREA NITROGEN) 59 MG/DL (6-23); CHLORIDE, SERUM 103 MMOL/L (96-112); CO2 (CARBON DIOXIDE) 19 MMOL/L (24-34); CREATININE 3.55 MG/DL (0.70-1.30); GFR AFRICAN AMERICAN 19 ML/MIN (>=60); GFR NON AFRICAN AMERICAN 17 ML/MIN (>=60); GLUCOSE, SERUM 159 MG/DL (60-99); SODIUM, SERUM 136 MMOL/L (135-148)
[2016-10-24 14:12] LABS: BUN (BLOOD UREA NITROGEN) 56 MG/DL (6-23); CALCIUM, SERUM 8.5 MG/DL (8.5-10.4); CHLORIDE, SERUM 101 MMOL/L (96-112); CO2 (CARBON DIOXIDE) 23 MMOL/L (24-34); CREATININE 3.03 MG/DL (0.70-1.30); GFR AFRICAN AMERICAN 24 ML/MIN (>=60); GFR NON AFRICAN AMERICAN 20 ML/MIN (>=60); GLUCOSE, SERUM 141 MG/DL (60-99); POTASSIUM, SERUM 3.7 MMOL/L (3.5-5.3); SODIUM, SERUM 136 MMOL/L (135-148)
[2016-10-25 03:50] LABS: BASOPHILS 0.1 %; BASOPHILS ABSOLUTE 0.01 10/3/uL (0.0-0.16); EOSINOPHILS 0.1 %; EOSINOPHILS ABSOLUTE 0.01 10/3/uL (0.0-0.53); HEMATOCRIT 29.8 % (40.0-51.0); HEMOGLOBIN 10.4 g/dL (13.6-17.8); IMMATURE GRANULOCYTES 0.4 %; IMMATURE GRANULOCYTES ABSOLUTE 0.06 10/3/uL (0.0-0.11); LYMPHOCYTES 5.8 %; MEAN CORPUS HGB CONC 34.9 g/dL (32.0-36.0); MEAN PLATELET VOLUME 10.2 fL (9.2-13.0); MONOCYTES 6.7 %; MONOCYTES ABSOLUTE 1.04 10/3/uL (0.21-1.20); NEUTROPHILS 86.9 %; PLATELET COUNT 166 10/3/uL (150-400); RBC DISTRIBUTION WIDTH 14.7 % (12.0-16.0); RED CELL COUNT 3.25 10/6/uL (4.7-6.1); WHITE BLOOD CELLS 15.4 10/3/uL (4.5-10.5)
[2016-10-25 04:04] LABS: MANUAL DIFF NO %; MEAN CORPUSCULAR VOLUME 91.7 fL (80-100)
[2016-10-25 04:08] LABS: ALBUMIN 3.1 G/DL (3.5-5.0); BUN (BLOOD UREA NITROGEN) 55 MG/DL (6-23); CALCIUM, SERUM 8.4 MG/DL (8.5-10.4); CHLORIDE, SERUM 96 MMOL/L (96-112); CO2 (CARBON DIOXIDE) 26 MMOL/L (24-34); CREATININE 2.79 MG/DL (0.70-1.30); GFR AFRICAN AMERICAN 26 ML/MIN (>=60); GFR NON AFRICAN AMERICAN 22 ML/MIN (>=60); GLUCOSE, SERUM 129 MG/DL (60-99); PHOSPHORUS, SERUM 3.3 MG/DL (2.5-4.5); POTASSIUM, SERUM 3.2 MMOL/L (3.5-5.3); SODIUM, SERUM 134 MMOL/L (135-148)
[2016-10-26 04:15] LABS: BASOPHILS 0.1 %; BASOPHILS ABSOLUTE 0.01 10/3/uL (0.0-0.16); EOSINOPHILS 0.1 %; EOSINOPHILS ABSOLUTE 0.01 10/3/uL (0.0-0.53); HEMATOCRIT 30.7 % (40.0-51.0); HEMOGLOBIN 10.9 g/dL (13.6-17.8); IMMATURE GRANULOCYTES 0.4 %; IMMATURE GRANULOCYTES ABSOLUTE 0.05 10/3/uL (0.0-0.11); LYMPHOCYTES 5.9 %; LYMPHOCYTES ABSOLUTE 0.78 10/3/uL (0.67-4.30); MANUAL DIFF NO %; MEAN CORPUS HGB CONC 35.5 g/dL (32.0-36.0); MEAN CORPUSCULAR HEMOGLOB 32.4 pg (26.0-34.0); MEAN CORPUSCULAR VOLUME 91.4 fL (80-100); MEAN PLATELET VOLUME 10.2 fL (9.2-13.0); MONOCYTES 8.9 %; MONOCYTES ABSOLUTE 1.18 10/3/uL (0.21-1.20); NEUTROPHILS 84.6 %; NEUTROPHILS ABSOLUTE 11.19 10/3/uL (2.02-8.40); PLATELET COUNT 187 10/3/uL (150-400); RBC DISTRIBUTION WIDTH 14.6 % (12.0-16.0); RED CELL COUNT 3.36 10/6/uL (4.7-6.1); WHITE BLOOD CELLS 13.2 10/3/uL (4.5-10.5)
[2016-10-26 04:32] LABS: BUN (BLOOD UREA NITROGEN) 58 MG/DL (6-23); CALCIUM, SERUM 9.2 MG/DL (8.5-10.4); CHLORIDE, SERUM 95 MMOL/L (96-112); CO2 (CARBON DIOXIDE) 26 MMOL/L (24-34); CREATININE 2.61 MG/DL (0.70-1.30); GFR AFRICAN AMERICAN 28 ML/MIN (>=60); GFR NON AFRICAN AMERICAN 24 ML/MIN (>=60); GLUCOSE, SERUM 124 MG/DL (60-99); PHOSPHORUS, SERUM 3.5 MG/DL (2.5-4.5); SODIUM, SERUM 135 MMOL/L (135-148)
[2016-10-27 03:21] LABS: BASOPHILS 0.1 %; BASOPHILS ABSOLUTE 0.01 10/3/uL (0.0-0.16); EOSINOPHILS 1.5 %; EOSINOPHILS ABSOLUTE 0.14 10/3/uL (0.0-0.53); HEMATOCRIT 31.6 % (40.0-51.0); IMMATURE GRANULOCYTES 0.3 %; IMMATURE GRANULOCYTES ABSOLUTE 0.03 10/3/uL (0.0-0.11); LYMPHOCYTES 9.8 %; LYMPHOCYTES ABSOLUTE 0.89 10/3/uL (0.67-4.30); MEAN CORPUS HGB CONC 34.8 g/dL (32.0-36.0); MEAN CORPUSCULAR HEMOGLOB 32.1 pg (26.0-34.0); MEAN CORPUSCULAR VOLUME 92.1 fL (80-100); MEAN PLATELET VOLUME 9.9 fL (9.2-13.0); MONOCYTES ABSOLUTE 0.91 10/3/uL (0.21-1.20); NEUTROPHILS 78.3 %; NEUTROPHILS ABSOLUTE 7.08 10/3/uL (2.02-8.40); PLATELET COUNT 194 10/3/uL (150-400); RBC DISTRIBUTION WIDTH 14.8 % (12.0-16.0); RED CELL COUNT 3.43 10/6/uL (4.7-6.1); WHITE BLOOD CELLS 9.1 10/3/uL (4.5-10.5)
[2016-10-27 03:24] LABS: MANUAL DIFF NO %
[2016-10-27 03:32] LABS: ALBUMIN 3.1 G/DL (3.5-5.0); CALCIUM, SERUM 9.4 MG/DL (8.5-10.4); CHLORIDE, SERUM 99 MMOL/L (96-112); CO2 (CARBON DIOXIDE) 28 MMOL/L (24-34); CREATININE 2.63 MG/DL (0.70-1.30); GFR AFRICAN AMERICAN 28 ML/MIN (>=60); GFR NON AFRICAN AMERICAN 24 ML/MIN (>=60); GLUCOSE, SERUM 130 MG/DL (60-99); PHOSPHORUS, SERUM 3.5 MG/DL (2.5-4.5); POTASSIUM, SERUM 3.3 MMOL/L (3.5-5.3); SODIUM, SERUM 136 MMOL/L (135-148)
[2016-10-27 03:33] LABS: BUN (BLOOD UREA NITROGEN) 71 MG/DL (6-23)
[2016-10-27 20:08] LABS: POTASSIUM, SERUM 3.7 MMOL/L (3.5-5.3)
[2016-10-28 05:15] LABS: BASOPHILS 0.3 %; BASOPHILS ABSOLUTE 0.02 10/3/uL (0.0-0.16); EOSINOPHILS 3.8 %; EOSINOPHILS ABSOLUTE 0.27 10/3/uL (0.0-0.53); HEMATOCRIT 30.2 % (40.0-51.0); HEMOGLOBIN 10.6 g/dL (13.6-17.8); IMMATURE GRANULOCYTES ABSOLUTE 0.07 10/3/uL (0.0-0.11); LYMPHOCYTES ABSOLUTE 1.08 10/3/uL (0.67-4.30); MANUAL DIFF NO %; MEAN CORPUS HGB CONC 35.1 g/dL (32.0-36.0); MEAN CORPUSCULAR HEMOGLOB 32.5 pg (26.0-34.0); MEAN CORPUSCULAR VOLUME 92.6 fL (80-100); MEAN PLATELET VOLUME 9.9 fL (9.2-13.0); MONOCYTES ABSOLUTE 0.72 10/3/uL (0.21-1.20); NEUTROPHILS 69.9 %; NEUTROPHILS ABSOLUTE 5.02 10/3/uL (2.02-8.40); PLATELET COUNT 205 10/3/uL (150-400); RED CELL COUNT 3.26 10/6/uL (4.7-6.1); WHITE BLOOD CELLS 7.2 10/3/uL (4.5-10.5)
[2016-10-28 05:18] LABS: ALBUMIN 3.2 G/DL (3.5-5.0); BUN (BLOOD UREA NITROGEN) 88 MG/DL (6-23); CALCIUM, SERUM 9.4 MG/DL (8.5-10.4); CHLORIDE, SERUM 102 MMOL/L (96-112); CO2 (CARBON DIOXIDE) 30 MMOL/L (24-34); CREATININE 2.62 MG/DL (0.70-1.30); GFR AFRICAN AMERICAN 28 ML/MIN (>=60); GFR NON AFRICAN AMERICAN 24 ML/MIN (>=60); GLUCOSE, SERUM 100 MG/DL (60-99); PHOSPHORUS, SERUM 3.2 MG/DL (2.5-4.5); POTASSIUM, SERUM 3.7 MMOL/L (3.5-5.3); SODIUM, SERUM 140 MMOL/L (135-148)
[2016-10-29 00:44] LABS: CALCIUM, SERUM 9.7 MG/DL (8.5-10.4); CHLORIDE, SERUM 100 MMOL/L (96-112); CO2 (CARBON DIOXIDE) 29 MMOL/L (24-34); CREATININE 2.69 MG/DL (0.70-1.30); GFR AFRICAN AMERICAN 27 ML/MIN (>=60); GFR NON AFRICAN AMERICAN 23 ML/MIN (>=60); PHOSPHORUS, SERUM 3.2 MG/DL (2.5-4.5); POTASSIUM, SERUM 3.4 MMOL/L (3.5-5.3); SODIUM, SERUM 139 MMOL/L (135-148)
[2016-10-29 00:48] LABS: BUN (BLOOD UREA NITROGEN) 93 MG/DL (6-23); GLUCOSE, SERUM 171 MG/DL (60-99)
[2016-10-29 05:31] LABS: BUN (BLOOD UREA NITROGEN) 90 MG/DL (6-23); CALCIUM, SERUM 9.9 MG/DL (8.5-10.4); CHLORIDE, SERUM 100 MMOL/L (96-112); CO2 (CARBON DIOXIDE) 28 MMOL/L (24-34); CREATININE 2.61 MG/DL (0.70-1.30); GFR AFRICAN AMERICAN 28 ML/MIN (>=60); GFR NON AFRICAN AMERICAN 24 ML/MIN (>=60); GLUCOSE, SERUM 116 MG/DL (60-99); POTASSIUM, SERUM 3.6 MMOL/L (3.5-5.3); SODIUM, SERUM 141 MMOL/L (135-148)
[2016-10-30 05:53] LABS: CALCIUM, SERUM 9.7 MG/DL (8.5-10.4); CHLORIDE, SERUM 102 MMOL/L (96-112); CO2 (CARBON DIOXIDE) 28 MMOL/L (24-34); CREATININE 2.62 MG/DL (0.70-1.30); GFR AFRICAN AMERICAN 28 ML/MIN (>=60); GFR NON AFRICAN AMERICAN 24 ML/MIN (>=60); GLUCOSE, SERUM 112 MG/DL (60-99); POTASSIUM, SERUM 3.7 MMOL/L (3.5-5.3); SODIUM, SERUM 138 MMOL/L (135-148)
[2016-10-30 05:56] LABS: BUN (BLOOD UREA NITROGEN) 96 MG/DL (6-23)
[2016-10-31 00:34] LABS: BASOPHILS 0.2 %; BASOPHILS ABSOLUTE 0.03 10/3/uL (0.0-0.16); EOSINOPHILS 3.4 %; EOSINOPHILS ABSOLUTE 0.44 10/3/uL (0.0-0.53); HEMOGLOBIN 11.8 g/dL (13.6-17.8); IMMATURE GRANULOCYTES 1.6 %; IMMATURE GRANULOCYTES ABSOLUTE 0.21 10/3/uL (0.0-0.11); LYMPHOCYTES 16.9 %; LYMPHOCYTES ABSOLUTE 2.18 10/3/uL (0.67-4.30); MEAN CORPUS HGB CONC 34.3 g/dL (32.0-36.0); MEAN CORPUSCULAR HEMOGLOB 31.8 pg (26.0-34.0); MEAN CORPUSCULAR VOLUME 92.7 fL (80-100); MEAN PLATELET VOLUME 9.8 fL (9.2-13.0); MONOCYTES 8.1 %; MONOCYTES ABSOLUTE 1.04 10/3/uL (0.21-1.20); NEUTROPHILS 69.8 %; NEUTROPHILS ABSOLUTE 8.99 10/3/uL (2.02-8.40); PLATELET COUNT 264 10/3/uL (150-400); RBC DISTRIBUTION WIDTH 14.7 % (12.0-16.0); RED CELL COUNT 3.71 10/6/uL (4.7-6.1)
[2016-10-31 00:37] LABS: HEMATOCRIT 34.4 % (40.0-51.0); WHITE BLOOD CELLS 12.9 10/3/uL (4.5-10.5)
[2016-10-31 00:38] LABS: MANUAL DIFF NO %
[2016-10-31 00:52] LABS: BUN (BLOOD UREA NITROGEN) 98 MG/DL (6-23); CHLORIDE, SERUM 103 MMOL/L (96-112); CO2 (CARBON DIOXIDE) 28 MMOL/L (24-34); CREATININE 2.63 MG/DL (0.70-1.30); GFR AFRICAN AMERICAN 28 ML/MIN (>=60); GFR NON AFRICAN AMERICAN 24 ML/MIN (>=60); GLUCOSE, SERUM 103 MG/DL (60-99); POTASSIUM, SERUM 3.7 MMOL/L (3.5-5.3); SODIUM, SERUM 140 MMOL/L (135-148)
[2016-10-31 00:54] LABS: CK-MB 1.1 NG/ML; CPK 85 U/L (0-200)
[2016-10-31 00:55] LABS: TROPONIN I 0.05 NG/ML (<0.05)
[2016-10-31 01:51] LABS: ALBUMIN 3.1 G/DL (3.5-5.0); PHOSPHORUS, SERUM 3.8 MG/DL (2.5-4.5)
[2016-10-31 02:57] LABS: PROCALCITONIN 0.16 ng/mL (<0.5)
[2016-11-01 05:22] LABS: BASOPHILS 0.3 %; BASOPHILS ABSOLUTE 0.03 10/3/uL (0.0-0.16); EOSINOPHILS 3.9 %; HEMATOCRIT 33.2 % (40.0-51.0); HEMOGLOBIN 11.2 g/dL (13.6-17.8); IMMATURE GRANULOCYTES 1.5 %; IMMATURE GRANULOCYTES ABSOLUTE 0.15 10/3/uL (0.0-0.11); LYMPHOCYTES 13.2 %; LYMPHOCYTES ABSOLUTE 1.34 10/3/uL (0.67-4.30); MANUAL DIFF NO %; MEAN CORPUS HGB CONC 33.7 g/dL (32.0-36.0); MEAN CORPUSCULAR HEMOGLOB 31.8 pg (26.0-34.0); MEAN CORPUSCULAR VOLUME 94.3 fL (80-100); MEAN PLATELET VOLUME 9.9 fL (9.2-13.0); MONOCYTES ABSOLUTE 0.61 10/3/uL (0.21-1.20); NEUTROPHILS 75.1 %; NEUTROPHILS ABSOLUTE 7.62 10/3/uL (2.02-8.40); PLATELET COUNT 260 10/3/uL (150-400); RBC DISTRIBUTION WIDTH 14.8 % (12.0-16.0); RED CELL COUNT 3.52 10/6/uL (4.7-6.1); WHITE BLOOD CELLS 10.2 10/3/uL (4.5-10.5)
[2016-11-01 05:34] LABS: ALBUMIN 2.8 G/DL (3.5-5.0); CALCIUM, SERUM 8.9 MG/DL (8.5-10.4); CHLORIDE, SERUM 111 MMOL/L (96-112); CO2 (CARBON DIOXIDE) 26 MMOL/L (24-34); GLUCOSE, SERUM 94 MG/DL (60-99); POTASSIUM, SERUM 4.1 MMOL/L (3.5-5.3); SODIUM, SERUM 146 MMOL/L (135-148)
[2016-11-01 05:36] LABS: BUN (BLOOD UREA NITROGEN) 80 MG/DL (6-23); GFR AFRICAN AMERICAN 37 ML/MIN (>=60); GFR NON AFRICAN AMERICAN 32 ML/MIN (>=60); PHOSPHORUS, SERUM 2.5 MG/DL (2.5-4.5)
[2016-11-02 07:38] LABS: BASOPHILS 0.2 %; BASOPHILS ABSOLUTE 0.03 10/3/uL (0.0-0.16); EOSINOPHILS 2.3 %; EOSINOPHILS ABSOLUTE 0.29 10/3/uL (0.0-0.53); HEMATOCRIT 32.1 % (40.0-51.0); IMMATURE GRANULOCYTES 0.8 %; LYMPHOCYTES 10.2 %; LYMPHOCYTES ABSOLUTE 1.31 10/3/uL (0.67-4.30); MEAN CORPUS HGB CONC 34.3 g/dL (32.0-36.0); MEAN CORPUSCULAR HEMOGLOB 32.4 pg (26.0-34.0); MEAN CORPUSCULAR VOLUME 94.4 fL (80-100); MEAN PLATELET VOLUME 9.9 fL (9.2-13.0); MONOCYTES 8.4 %; MONOCYTES ABSOLUTE 1.08 10/3/uL (0.21-1.20); NEUTROPHILS 78.1 %; NEUTROPHILS ABSOLUTE 10.05 10/3/uL (2.02-8.40); PLATELET COUNT 247 10/3/uL (150-400); WHITE BLOOD CELLS 12.9 10/3/uL (4.5-10.5)
[2016-11-02 07:39] LABS: MANUAL DIFF NO %
[2016-11-02 07:50] LABS: ALBUMIN 2.8 G/DL (3.5-5.0); CALCIUM, SERUM 9.1 MG/DL (8.5-10.4); CHLORIDE, SERUM 110 MMOL/L (96-112); CO2 (CARBON DIOXIDE) 26 MMOL/L (24-34); CREATININE 1.99 MG/DL (0.70-1.30); GFR AFRICAN AMERICAN 39 ML/MIN (>=60); GFR NON AFRICAN AMERICAN 34 ML/MIN (>=60); GLUCOSE, SERUM 110 MG/DL (60-99); PHOSPHORUS, SERUM 2.6 MG/DL (2.5-4.5); POTASSIUM, SERUM 4.5 MMOL/L (3.5-5.3); SODIUM, SERUM 143 MMOL/L (135-148)
[2016-11-02 07:51] LABS: BUN (BLOOD UREA NITROGEN) 62 MG/DL (6-23)
[2016-11-02] MEDS ORDERED: PACERONE200 MG PO (11:34)
[2016-11-02] MEDS ORDERED: PACERONE400 MG PO (11:34)
[2016-11-02] MEDS ORDERED: PROAMAT5 PO (11:35)
[2016-11-02] MEDS ORDERED: [UNRECOGNIZED DRUG - REMARK] (11:40)
[2017-01-12] MEDS ORDERED: CYANO1000T PO (16:58)
[2017-01-12] MEDS ORDERED: FERROUS SULF325 M1 PO (17:00)
[2017-01-12] MEDS ORDERED: COREG6 PO (17:02)
[2017-01-14] MEDS ORDERED: Z100 PO (11:10)
[2017-01-14] MEDS ORDERED: CORDARONE PO (11:10)
[2017-01-14] MEDS ORDERED: LIPITOR80 MG PO (11:11)
[2017-01-14] MEDS ORDERED: ASAB PO (11:11)
[2017-01-14] MEDS ORDERED: PLAVIX PO (11:11)
[2017-01-14] MEDS ORDERED: COREG6 PO (11:11)
[2017-01-14] MEDS ORDERED: TEARS PURE OPH (11:11)
[2017-01-14] MEDS ORDERED: FERROUS SULF325 M1 PO (11:12)
[2017-01-14] MEDS ORDERED: CYANO1000T PO (11:12)
[2017-01-14] MEDS ORDERED: NEUR300 PO (11:12)
[2017-01-14] MEDS ORDERED: PROAMAT5 PO (11:13)
[2017-01-14] MEDS ORDERED: NOVOLOGMIX (11:13)
[2017-01-14] MEDS ORDERED: NITROSTAT0.4 MG SL (11:13)
[2017-01-14] MEDS ORDERED: NOVOPENMIX SC (12:04)
[2017-01-14] MEDS ORDERED: NOVOLOGMIX SC (12:05)
== END 2016-11-02 14:31 | disposition home or self-care (01) | DRG 871 ==
LOC: ER 18:50 → CCU 20:39 → 7NO 10-29 14:48
PROVIDERS: Hospitalist; Internal Medicine; Internal Medicine Cardiovascular Disease; Internal Medicine Nephrology
PROC: 5A2204Z Restoration of Cardiac Rhythm, Single (ICD-10-PCS; 2016-10-22)
PROC: 4B02XTZ Measurement of Cardiac Defibrillator, External Approach (ICD-10-PCS; 2016-10-22)
PROC: 4A023N7 Measurement of Cardiac Sampling and Pressure, Left Heart, Percutaneous Approach (ICD-10-PCS; principal; 2016-10-23)
PROC: B2110ZZ Fluoroscopy of Multiple Coronary Arteries using High Osmolar Contrast (ICD-10-PCS; 2016-10-23)
PROC: 02HV33Z Insertion of Infusion Device into Superior Vena Cava, Percutaneous Approach (ICD-10-PCS; 2016-10-23)
DX: A41.51 Sepsis due to Escherichia coli [E. coli] (principal); I21.4 Non-ST elevation (NSTEMI) myocardial infarction; N17.0 Acute kidney failure with tubular necrosis; R57.0 Cardiogenic shock; I50.21 Acute systolic (congestive) heart failure; I50.23 Acute on chronic systolic (congestive) heart failure; I47.2 Ventricular tachycardia; I13.0 Hypertensive heart and chronic kidney disease with heart failure and stage 1 through stage 4 chronic kidney disease, or unspecified chronic kidney disease; T82.855A Stenosis of coronary artery stent, initial encounter; I25.5 Ischemic cardiomyopathy; E11.22 Type 2 diabetes mellitus with diabetic chronic kidney disease; I25.10 Atherosclerotic heart disease of native coronary artery without angina pectoris; E78.5 Hyperlipidemia, unspecified; N18.9 Chronic kidney disease, unspecified; F17.210 Nicotine dependence, cigarettes, uncomplicated; E66.9 Obesity, unspecified; M10.9 Gout, unspecified; E78.00 Pure hypercholesterolemia, unspecified; I25.2 Old myocardial infarction; N18.2 Chronic kidney disease, stage 2 (mild); D64.9 Anemia, unspecified; I44.7 Left bundle-branch block, unspecified; Z95.810 Presence of automatic (implantable) cardiac defibrillator; Z85.46 Personal history of malignant neoplasm of prostate; Z92.3 Personal history of irradiation; Z79.02 Long term (current) use of antithrombotics/antiplatelets; Z79.4 Long term (current) use of insulin; Z68.26 Body mass index [BMI] 26.0-26.9, adult
CPT/HCPCS: 36415; 36600; 71010; 80048; 80061; 80069; 81001; 82043; 82330; 82550; 82553; 82570; 82803; 82947; 82962; 83605; 83735; 83880; 84100; 84132; 84145; 84295; 84300; 84443; 84460; 84484; 85014; 85025; 85610; 85730; 86850; 86900; 86901; 87040; 87070; 87077; 87086; 87150; 87186; 87205; 87641; 93005; 93288; 93458; 96365; 96366; 96375; 97161-GP; 97164-GP; 99152; 99153; 99291; 99292; A9270-GY; C1760; C1769; C8924; C8929; G8978-CL-GP; G8979-CK-GP; J0282; J0690; J1580; J2250; J2370; J2543; J3010; J3475; P9047; Q9957; Q9967